=== PATIENT | male | born 1960 | race Caucasian/White ===

== ENCOUNTER 2017-11-01 15:48 | Outpatient (CLI) | payer OTHER ==
[~2017-11-01 15:48] MED LIST: ACET-1172 PO
== END 2017-11-01 21:00 | disposition home or self-care (01) ==
LOC: SRD 15:48
PROVIDERS: ATTEND Internal Medicine
DX: M17.11 Unilateral primary osteoarthritis, right knee (principal)
CPT/HCPCS: 73564

== ENCOUNTER 2023-05-12 15:40 | Emergency (ER) | payer OTHER ==
[~2023-05-12] VITALS: Ht 185.4 cm; Wt 86.2 kg
[2023-05-12 15:40] VITALS: BP_SYST 137; PULSE 68; RESP 18; TEMP 98.2; O2SAT 99
[2023-05-12] MEDS: KETOROLAC TROMETHAMINE 60 MG/2 ML VIAL IM ONE (17:08)
[2023-05-12] MEDS ORDERED: IBUP-1969 PO (17:31)
[2023-05-12] MEDS ORDERED: DICL20GE TP (17:31)
[2023-05-12 17:40] VITALS: BP_SYST 137; PULSE 68; RESP 18; TEMP 98.2; O2SAT 99
== END 2023-05-12 17:40 | disposition home or self-care (01) ==
LOC: SED 15:40
DX: S43.401A Unspecified sprain of right shoulder joint, initial encounter (principal); S46.001A Unspecified injury of muscle(s) and tendon(s) of the rotator cuff of right shoulder, initial encounter; Z79.899 Other long term (current) drug therapy; W18.39XA Other fall on same level, initial encounter; Y93.89 Activity, other specified; Y92.89 Other specified places as the place of occurrence of the external cause; Y99.8 Other external cause status
CPT/HCPCS: 99283; 73030; 96372; J1885

== ENCOUNTER 2023-07-18 05:30 | Day surgery (SDC) | payer OTHER ==
[2023-07-08 11:09] LABS: BILIRUBIN,URINE NEGATIVE (NEGATIVE); BLOOD, URINE NEGATIVE (NEGATIVE); CLARITY/URINE CLEAR (CLEAR); COLOR,URINE YELLOW (YELLOW); GLUCOSE,URINE NEGATIVE (NEGATIVE); KETONES,URINE NEGATIVE (NEGATIVE); LEUKOCYTE ESTERASE ,URINE NEGATIVE (NEGATIVE); NITRITE, URINE NEGATIVE (NEGATIVE); PROTEIN URINE NEGATIVE (NEGATIVE); UROBILINOGEN,URINE 0.2 (0.2-1.0)
[2023-07-08 11:25] LABS: BASOPHILS % (AUTO) 0.4 % (0.0-2.0); EOSINOPHILS # (AUTO) 0.1 K/uL (0.0-0.4); EOSINOPHILS % (AUTO) 1.5 % (0.0-4.0); HEMATOCRIT 41.6 % (36-54); HEMOGLOBIN 14.2 g/dL (14.0-18.0); LYMPHOCYTES # (AUTO) 1.4 K/uL (1.0-5.5); LYMPHOCYTES % (AUTO) 16.2 % (20.5-51.5); MEAN CORPUSCULAR HEMOGLOBIN 32 pg (27-31); MEAN CORPUSCULAR HGB CONC 34 % (32-36); MEAN CORPUSCULAR VOLUME 93 fL (79.0-98.0); MONOCYTES # (AUTO) 0.7 K/uL (0.0-1.0); MONOCYTES % (AUTO) 7.9 % (1.7-9.3); NEUTROPHILS # (AUTO) 6.3 K/uL (1.8-7.7); PLATELET COUNT (AUTO) 332 K/uL (130-430); RED BLOOD CELL COUNT(AUTO) 4.47 MIL/uL (4.2-6.2); RED CELL DISTRIBUTION WIDTH 13.7 % (9.0-15.0); WHITE BLOOD COUNT (AUTO) 8.5 K/uL (4.8-10.8)
[2023-07-08 11:45] LABS: ALBUMIN 3.4 g/dL (3.4-4.8); CALCIUM 9.1 mg/dL (8.4-11.0); CREATININE 1.01 mg/dL (0.55-1.30); POTASSIUM 4.5 mmol/L (3.5-5.1); TOTAL BILIRUBIN 0.5 mg/dL (0.0-1.0); TOTAL PROTEIN, SERUM 7.5 g/dL (6.4-8.3)
[2023-07-08 12:12] LABS: HEMOGLOBIN A1C 6.56 % (<5.7)
[~2023-07-18] VITALS: Ht 182.9 cm; Wt 86.2 kg
[~2023-07-18 05:30] MED LIST changes: +DICL20GE TP; +IBUP-1969 PO
[2023-07-18 06:37] VITALS: O2SAT 98
[2023-07-18] MEDS ORDERED: CEFAZOLIN SOD 2 GM in D5W 50 ML IV ONE (07:00)
[2023-07-18] MEDS ORDERED: DEXAMETHASONE SOD PHOSPHATE 4 MG/ML VIAL ONE (07:30)
[2023-07-18] MEDS ORDERED: IBUP-1970 PO (08:19)
[2023-07-18] MEDS ORDERED: ALBMDI INH (08:19)
[2023-07-18] MEDS ORDERED: VITD2000 PO (08:19)
[2023-07-18] MEDS ORDERED: MULT-1117 PO (08:19)
[2023-07-18] MEDS ORDERED: LIP40 PO (08:19)
[2023-07-18] MEDS ORDERED: CYAN-25 PO (08:19)
[2023-07-18] MEDS ORDERED: CROM26SP NS (08:19)
[2023-07-18] MEDS ORDERED: IMI50 PO (08:19)
[2023-07-18] MEDS ORDERED: LEVO88TA5 PO (08:19)
[2023-07-18] MEDS ORDERED: INSU100V SUBCUT (08:19)
[2023-07-18] MEDS ORDERED: HYDR-3927 PO (08:19)
[2023-07-18] MEDS ORDERED: ACETAMINOPHEN I.V. 1000 MG 100 ML IV ONE (08:37)
[2023-07-18] MEDS ORDERED: LR 1,000 ML IV SCH (08:45)
[2023-07-18] MEDS ORDERED: MEPERIDINE HCL/PF 25 MG/ML DISP.SYRIN IVP PRN (08:45)
[2023-07-18] MEDS ORDERED: METOCLOPRAMIDE HCL 10 MG/2 ML VIAL IVP PRN (08:45)
[2023-07-18] MEDS ORDERED: HYDROmorphone 1 MG/ML INJ. CARTRIDGE IVP PRN ×2 (08:45)
[2023-07-18 13:28] VITALS: BP_SYST 137; PULSE 68; RESP 16
== END 2023-07-18 13:16 | disposition home or self-care (01) ==
LOC: SMU 05:30 → SDS 05:30
PROVIDERS: ATTEND Orthopaedic Surgery Sports Medicine
DX: M75.121 Complete rotator cuff tear or rupture of right shoulder, not specified as traumatic (principal); J45.909 Unspecified asthma, uncomplicated; E10.65 Type 1 diabetes mellitus with hyperglycemia; E03.9 Hypothyroidism, unspecified; F41.9 Anxiety disorder, unspecified; F32.A Depression, unspecified; M19.90 Unspecified osteoarthritis, unspecified site; Z90.49 Acquired absence of other specified parts of digestive tract; Z98.890 Other specified postprocedural states; Z79.890 Hormone replacement therapy; Z79.899 Other long term (current) drug therapy
CPT/HCPCS: 80053; 81001; 83037; 85025; 85610; 85730; 87081; 36415; 81003; 29827; 64415; 82948; J3490 ×2; J0690; J1100; J0171; J1885; J2250; J2405; J2704; J3010; J7060; J7120; J0131; C1713